=== PATIENT | female | born 1980 | race Caucasian/White ===

== ENCOUNTER 2023-05-17 20:05 | Emergency (ER) | payer SELFPAY ==
[~2023-05-17] VITALS: Ht 152.4 cm; Wt 66.7 kg
[2023-05-17 20:11] VITALS: BP 156/91; O2SAT 97
[2023-05-17] MEDS ORDERED: PREDNISONE 20MG TABLET PO ONE (21:30)
[2023-05-17] MEDS ORDERED: ALBUTEROL (0.083%) 2.5MG/3ML NEB HHN ONE (21:30)
[2023-05-17 21:44] LABS: CLARITY URINE CLEAR (CLEAR); COLOR URINE YELLOW (YELLOW); GLUCOSE URINE NEGATIVE (NEGATIVE); KETONES URINE NEGATIVE (NEGATIVE); LEUKOCYTE ESTERASE URINE 1+ (NEGATIVE); NITRITE URINE NEGATIVE (NEGATIVE); OCCULT BLOOD URINE 1+ (NEGATIVE); PH URINE 5.5 (4.5-8.0); PROTEIN URINE NEGATIVE (NEGATIVE); SPECIFIC GRAVITY URINE 1.009 (1.005-1.030); UROBILINOGEN URINE 0.2 E.U./dL (0.2-1.0)
[2023-05-17 21:46] LABS: SQUAMOUS EPITHELIAL CELL URINE 1+ /lpf (RARE/1+); YEAST URINE NONE SEEN
[2023-05-17 21:49] LABS: BACTERIA URINE TRACE
[2023-05-17 22:01] VITALS: PULSE 85; RESP 18
[2023-05-17] MEDS ORDERED: NITR-87 MT (22:02)
[2023-05-17] MEDS ORDERED: ALBU18HF2 IH (22:02)
[2023-05-17] MEDS ORDERED: P20 MT (22:02)
[2023-05-17 22:33] VITALS: PULSE 85; RESP 18; TEMP 98.4
== END 2023-05-17 22:40 | disposition home or self-care (01) ==
LOC: ER 20:05
DX: R06.02 Shortness of breath (principal); N39.0 Urinary tract infection, site not specified
CPT/HCPCS: 81003; 81025; 71045; 94640; 99284; J7512; Z7610 ×3